=== PATIENT | male | born 1990 | race Caucasian/White ===

== ENCOUNTER → 2022-08-13 15:07 | Outpatient (CLI) | payer BC, SELFPAY ==
--- NOTE | 2022-08-13 15:13 | XR_ITS ---
FINAL REPORT CLINICAL HISTORY: cp/abnl ecg FINDINGS: 2 views of the chest were obtained . The heart is normal in size. The mediastinum is within normal limits. The lungs are clear. There is no pneumothorax. Osseous structures are unremarkable. IMPRESSION: No acute cardiopulmonary process. Reviewed, Interpreted and Dictated by Ifeanyi Uribe MD Transcribed by Justine Bhandari Authenticated and [facility]
[2022-08-13 15:46] LABS: Basophils # 0.1 K/mm3 (0-0.2); Basophils % 1.8 % (0.1-2.0); Eosinophils # 0.4 K/mm3 (0.0-0.4); Eosinophils % 5.3 % (0.1-12.0); Hematocrit 49.4 % (42.0-52.0); Hemoglobin 16.6 g/dL (14.1-18.0); Lymphocytes # 2.3 K/mm3 (0.7-4.5); Lymphocytes % 32.7 % (10-50); Mean Corpuscular HGB Conc 33.5 g/dL (31.8-35.4); Mean Corpuscular Hemoglobin 29.2 pg (27.0-31.2); Mean Corpuscular Volume 87.1 fl (80-94); Monocytes # 0.6 K/mm3 (0.1-1.0); Monocytes % 8.1 % (1.7-9.3); Neutrophils # 3.7 K/mm3 (1.8-7.8); Neutrophils % 52.1 % (37.0-80.0); Platelet Count 339 K/mm3 (142-424); Red Blood Count 5.67 M/mm3 (4.60-6.20); Red Cell Distribution Width 12.6 % (11.5-17.5); White Blood Count 7.1 K/mm3 (4.8-10.8)
[2022-08-13 16:01] LABS: Alanine Aminotransferase 57 U/L (12-78); Albumin Level 4.7 g/dl (3.5-5.0); Alkaline Phosphatase 76 U/L (38-126); Anion Gap 8.1 mEq/L (5-15); Aspartate Amino Transferase 39 U/L (17-59); Bilirubin,Direct 0.1 mg/dl (0.0-0.4); Bilirubin,Indirect 0.3 mg/dL (0.0-0.9); Bilirubin,Total 0.4 mg/dl (0.2-1.3); Bilirubin,Unconjugated 0.3 mg/dL (0.0-1.1); Blood Urea Nitrogen 11 mg/dl (9-20); Calcium 9.2 mg/dl (8.4-10.2); Carbon Dioxide 31 mmol/L (22.0-30.0); Chloride 103 mmol/L (98-107); Chol/HDL Ratio 5.3 (1-3.5); Cholesterol 185 mg/dl (140-200); Estimated Glomerular Filt Rate 87 ml/min (>60); GFR (African American) 105 ML/MIN (>60); Glucose 96 mg/dl (74-100); HDL Cholesterol 35 mg/dl (40-60); Magnesium 2.1 mg/dl (1.6-2.3); Potassium 4.1 mmoL/L (3.5-5.1); Sodium 138 mmol/L (136-145); Total Protein,Serum 7.8 g/dl (6.3-8.2); Triglycerides 264 mg/dl (30-150); VLDL Cholesterol 53 mg/dL (0-40)
[2022-08-13 16:17] LABS: Direct LDL Cholesterol 102.62 mg/dL (100-129); Troponin I < 0.01 ng/ml (0.00-0.034)
[2022-08-13 16:18] LABS: Free T4 (Free Thyroxine) 0.99 ng/dl (0.78-2.19)
[2022-08-13 16:35] LABS: Thyroid Stimulating Hormone 1.57 uIU/mL (0.465-4.68)
== END ==
LOC: LAB 15:10
PROVIDERS: PCP Nurse Practitioner Family; Visit Provider Physician Assistant
DX: R07.9 Chest pain, unspecified (principal); R94.31 Abnormal electrocardiogram [ECG] [EKG]; Z82.49 Family history of ischemic heart disease and other diseases of the circulatory system
CPT/HCPCS: 36415; 71046; 80048; 80061; 80076; 83735; 84439; 84443; 84484; 85025

== ENCOUNTER → 2022-08-14 06:49 | Outpatient (CLI) | payer SELFPAY ==
--- NOTE | 2022-08-14 06:59 | CT_ITS ---
FINAL REPORT TECHNIQUE: Thin section axial images were obtained through the heart and coronary arteries per CT coronary calcium score protocol. This study was performed with techniques to keep radiation doses as low as reasonably achievable (ALARA). Individualized dose reduction techniques using automated exposure control or adjustment of mA and/or kV according to the patient's size were employed. CLINICAL HISTORY: cp/abnl ecg/family hx of cad. FINDINGS: On the axial images, no calcification is identified. This gives a coronary artery calcium score of 0 based on the Agatston scale. This coronary calcium score places the patient within the 0 percentile based on age and gender. The heart is normal in size. There is no pleural or pericardial effusion. Limited evaluation of the lungs reveal no suspicious nodule. IMPRESSION: Calcium score of 0 places patient within the 0 percentile based on age and gender. Reviewed, Interpreted and Dictated by Emmett Prado MD Transcribed by Merry Estrada Authenticated and [facility]
== END ==
PROVIDERS: PCP Nurse Practitioner Family; Visit Provider Physician Assistant
DX: R07.9 Chest pain, unspecified (principal); R94.31 Abnormal electrocardiogram [ECG] [EKG]; Z82.49 Family history of ischemic heart disease and other diseases of the circulatory system
CPT/HCPCS: 75571

== ENCOUNTER → 2022-08-14 06:53 | Outpatient (CLI) | payer BC, SELFPAY ==
--- NOTE | 2022-08-14 | CA_ITS ---
APPROVED REPORT Exam: Exercise Treadmill Technologist: Janet Castro, Ht: 5 ft 8 in Wt: 208 lbs BSA: 2.08 m2 HR: 68 bpm BP: 159/99 mmHg Medical History Medications: Omeprazole,,,,, Aspirin,,,,, Stress Test Details Test: Lyle HR Resting HR: 71 bpm Max Heart Rate (APMHR): 188 bpm Max HR Achieved: 179 bpm Target HR (85% APMHR): 160 bpm % of APMHR: 95 BP Resting BP: 136/84 mmHg Max BP: 160/88 mmHg Recovery BP: 130.0/82.0 mmHg ECG Clinical Exercise duration: 09:00 min Highest Stage Achieved: III Exercise capacity: 10.1 METs Stress ECG Conclusion Symptoms: SOA w/ peak exercise. Arrhythmias/Ectopy: PVCs noted Less than 1.[address] segment depression noted from the baseline EKG. The EKG portion of that exercise treadmill stress test is negative for ischemia. Normal exercise treadmill stress test. Test Summary REST . . . . . . . Sitting REST . . . . . . . Standing REST 14:42 0.0 0.0 71 . 136/ 84 . . Stage 1 01:00 10.0 1.7 99 . . . . Stage 1 02:00 10.0 1.7 99 . . . . Stage 1 03:00 10.0 1.7 109 . 140/ 78 . . Stage 2 01:00 12.0 2.5 126 . . . . Stage 2 02:00 12.0 2.5 135 . . . . Stage 2 03:00 12.0 2.5 145 . 158/ 80 . . Stage 3 01:00 14.0 3.4 167 . . . . Stage 3 02:00 14.0 3.4 172 . 160/ 88 . . Stage 3 03:00 14.0 3.4 179 . 160/ 88 . Stop exercise at 09:00 RECOVERY 01:00 0.0 0.0 149 . . . . RECOVERY 02:00 0.0 0.0 136 . . . . RECOVERY 03:00 0.0 0.0 120 . . . . RECOVERY 04:00 0.0 0.0 112 . . . . RECOVERY 05:00 0.0 0.0 109 . . . . RECOVERY 06:00 0.0 0.0 112 . . . . RECOVERY 07:00 0.0 0.0 120 . . . . RECOVERY 08:00 0.0 0.0 112 . 137/ 84 . . RECOVERY 08:32 0.0 0.0 115 . 130/ 82 . . Electronically signed by : Isak Barreto MD 08/14/2022 15:13:00
--- NOTE | 2022-08-14 07:23 | CA_ITS ---
APPROVED REPORT EXAM: Comprehensive 2D, Doppler, and color-flow Echocardiogram Cat Operator: Tonja Harden, RT(R) Ht: 5 ft 8 in Wt: 208lbs BSA: 2.08 BP: 136/84 mmHg Indications: family history of HD, ex smoker, CP, fatigue, abn EKG Stress Test Details HR Max Heart Rate (APMHR): 188.592035 bpm Target HR (85% APMHR): 159.625897 bpm BP ECG Conclusion 1. Patient exercised on Lyle protocol, achieved 10.1 METS of workload on treadmill, the blood pressure response to exercise was adequate, there was no exercise-induced chest discomfort. The EKG was negative for ischemia. 2. Resting echocardiogram showed normal left ventricular size and function, with exercise there is no segmental wall motion abnormality to suggest underlying ischemic heart disease. 3. Normal exercise stress echo, normal left ventricular systolic function. Electronically signed by : Isak Barreto MD 08/14/2022 18:17:32
--- NOTE | 2022-08-14 07:23 | CA_ITS ---
APPROVED REPORT EXAM: Comprehensive 2D, Doppler, and color-flow Echocardiogram Lead Investigator: Tonja Harden RT(R) Ht: 5 ft 8 in Wt: 208lbs BSA: 2.08 BP: 128/79 mmHg Indications: family history HD, CP, ex smoker, fatigue 2D Dimensions LVOT 2.02 cm (M/F) 1.5-2.5 LVEF (Wolfe's) 50.90 % M: 52 - 72 LV Volume 93.40 mL M: 62 - 150 LV Volume Index 44.90 mL/m2 M: 34 - 74 LA Volume 17.10 mL LA Volume Index 8.22 mL/m2 (M/F) 16-34 M-Mode Dimensions RVDd 2.61 cm (0.9-2.6) LA Diam 3.34 cm (1.9-4.0) LVDd 4.71 cm (3.5-5.7) Ao Diam 2.73 cm (2.0-3.7) LVDs 3.32 cm (3.5-5.7) IVSd 0.89 cm (0.6-1.1) PWd 0.86 cm (0.6-1.1) EF (Teich) 56.50% FS 29.50% EDV (Teich) 102.90 mL ESV (Teich) 44.80 mL LV Diastology E Decel Time 207.00 (160-240 msec) E/A Ratio 1.4 MED E' 9.10 (< 7 cm/sec) E'/MED E' Ratio 8.15 (>14) LAT E' 14.10 (<10 cm/sec) E/LAT E' Ratio 5.26 (>14) Mitral Valve MV E Max Eleazar. 74.00 (40-130 cm/s) MV A Velocity 54.00 (40-130 cm/s) E/A Ratio 1.36 MV Decel. Time 207.00 (160-240 ms) MV PHT 61.00 ms Left Ventricle Left atrium is normal size, left ventricle is normal size, estimated ejection fraction of 55% with no regional wall motion abnormality, diastolic parameters are within normal range. Right Ventricle Right atrium and right ventricular normal size and contractility. Aortic Valve Aortic valve is grossly normal there is no aortic stenosis or aortic insufficiency. Mitral Valve Mitral valve is grossly normal, there is no mitral stenosis or mitral regurgitation. Tricuspid Valve Tricuspid valve grossly normal, there is no significant tricuspid regurgitation seen. Pulmonic Valve Pulmonic valve is poorly visualized. Great Vessels Aortic root is normal size. Inferior vena cava is normal size with normal inspiratory collapse. Pericardium No significant pericardial effusion noted. Conclusion 1. Normal left ventricular size, estimated ejection fraction of 55% with no regional wall motion abnormality, diastolic parameters are within normal range. 2. No significant pericardial effusion noted. 3. Inferior vena cava is normal size with normal inspiratory collapse. Electronically signed by : Isak Barreto MD 08/14/2022 18:22:28
== END ==
LOC: RT 06:54
PROVIDERS: PCP Nurse Practitioner Family; Visit Provider Physician Assistant
DX: R07.9 Chest pain, unspecified (principal); R94.31 Abnormal electrocardiogram [ECG] [EKG]; Z82.49 Family history of ischemic heart disease and other diseases of the circulatory system
CPT/HCPCS: 93017; 93306; 93350